=== PATIENT | female | born 1950 | race Caucasian/White ===

== ENCOUNTER 2022-05-01 16:52 | Emergency (ER) | payer MEDICARE, SELFPAY ==
[2022-05-01] MEDS ORDERED: Boostrix 0.5 ML (Tdap) VIAL (>/=7 yrs of age) ONE (17:19)
[2022-05-01] MEDS ORDERED: Bacitracin 1 PK ONE (17:39)
[2022-05-01] MEDS ORDERED: traMADol HCl 50 MG TAB ONE (17:40)
== END 2022-05-01 18:39 | disposition home or self-care (01) ==
LOC: NAV ERS 16:52
DX: S51.852A Open bite of left forearm, initial encounter (principal); S41.151A Open bite of right upper arm, initial encounter; S51.851A Open bite of right forearm, initial encounter; S61.451A Open bite of right hand, initial encounter; E03.9 Hypothyroidism, unspecified; Z79.899 Other long term (current) drug therapy; W54.0XXA Bitten by dog, initial encounter
CPT/HCPCS: 90471; 90715

== ENCOUNTER 2023-03-20 17:27 | Emergency (ER) | payer MEDICARE, OTHER ==
[2023-03-20] MEDS ORDERED: Acetaminophen 500 MG TAB ONE (17:53)
[2023-03-20] MEDS ORDERED: Ibuprofen 200 MG TAB ONE (17:53)
[2023-03-20] MEDS ORDERED: Bupivacaine 0.5% 10 ML VIAL ONE (18:31)
[2023-03-20] MEDS ORDERED: Bacitracin 1 PK ONE (19:08)
== END 2023-03-20 19:19 | disposition home or self-care (01) ==
LOC: NAV ERS 17:27
DX: S91.112A Laceration without foreign body of left great toe without damage to nail, initial encounter (principal); E03.9 Hypothyroidism, unspecified; I10 Essential (primary) hypertension; Z79.899 Other long term (current) drug therapy; Z79.82 Long term (current) use of aspirin; W20.8XXA Other cause of strike by thrown, projected or falling object, initial encounter; Y99.0 Civilian activity done for income or pay
CPT/HCPCS: 12001; J3490